=== PATIENT | male | born 1970 | race American Indian/Alaskan Native ===

== ENCOUNTER 2020-11-13 20:34 | Emergency (ER) | payer OTHER ==
--- NOTE | 2020-11-13 20:50 | Event Note ---
ED Screening Note Date of service: 11/13/20 Time: 20:48 ED Screening Note: 50-year-old -[place] male presents to the emergency room for acute fatigue shortness of breath. Patient states that he had a very busy day worked out this morning. Some cars washing cars fixing dinner just has been very active and then stopped and got some vitamins and her energy took them with some water and then not too long after he started to have shortness of breath and dizziness. It was noted that patient has unsteady gait tearful eyes with swelling of the upper lids a little respiratory distress not able to keep his eyes open much mild diaphoretic. It was noted that his triage heart rate was 1 18-1 21. Blood pressure is elevated. This initial assessment/diagnostic orders/clinical plan/treatment(s) is/are subject to change based on patients health status, clinical progression and re-assessment by fellow clinical providers in the ED. Further treatment and workup at subsequent clinical providers discretion. Patient/guardian urged not to elope from the ED as their condition may be serious if not clinically assessed and managed. Initial orders include:
[2020-11-13 21:20] LABS: Basophils % (Auto) 0.5 % (0.0-1.8); Eosinophils % (Auto) 0.4 % (0.0-4.3); Hematocrit 44.1 % (35.5-45.6); Hemoglobin 14.3 gm/dl (11.8-15.2); Lymphocytes # (Auto) 2.3 K/mm3 (1.2-5.4); Mean Corpuscular HGB Conc 33 % (32-34); Mean Corpuscular Volume 83 fl (84-94); Monocytes # (Auto) 0.4 K/mm3 (0.0-0.8); Monocytes % (Auto) 5.1 % (0.0-7.3); Platelet Count 190 K/mm3 (140-440); Red Blood Count 5.34 M/mm3 (3.65-5.03); Red Cell Distribution Width 12.9 % (13.2-15.2)
[2020-11-13 21:36] LABS: Alanine Aminotransferase 22 units/L (7-56); Albumin 4.8 g/dL (3.9-5); BUN/Creatinine Ratio 15; Blood Urea Nitrogen 18 mg/dL (9-20); Calcium 9.9 mg/dL (8.4-10.2); Hemolysis Index 7
[2020-11-13] MEDS ORDERED: SODIUM CHLORIDE 0.9% 1000 ML 1,000 ML IV ONE (21:40)
[2020-11-13] MEDS ORDERED: LORazepam 2 MG/ML VIAL IV ONE (21:40)
[2020-11-13] MEDS ORDERED: POTASSIUM CHLORIDE ER 20 MEQ TAB PO ONE (21:45)
--- NOTE | 2020-11-13 21:47 | XRay Report ---
XR chest routine 2V INDICATION / CLINICAL INFORMATION: sob. COMPARISON: None available. FINDINGS: SUPPORT DEVICES: None. HEART /PULMONARY VASCULATURE: No significant abnormality. LUNGS / PLEURA: No significant pulmonary or pleural abnormality. No pneumothorax. ADDITIONAL FINDINGS: No significant additional findings. IMPRESSION: 1. No acute findings. Signer Name: Bradley Madrigal MD Signed: 11/13/2020 9:43 PM Workstation Name: [id number]
--- NOTE | 2020-11-13 21:58 | Emergency Department Report ---
ED Shortness of Breath HPI - General Chief Complaint: Dyspnea/Respdistress Stated Complaint: CHEST PAIN Time Seen by Provider: 11/13/20 21:30 Source: patient Mode of arrival: Ambulatory Limitations: No Limitations - History of Present Illness Initial Comments: 50-year-old male, no past medical history, presents to ED with palpitations and shortness of breath. Patient states he took a male enhancement pill that he got from a vitamin shop called "Ejaculoid." Patient states he has taken this product before however, it has been sometime ago. Patient states when he used it before he only took 1 pill. Tonight, he decided to take 2 pills. After taki ng the pills, patient states his heart was racing so fast that he felt like he could not catch his breath. Patient denies any chest pain. MD Complaint: shortness of breath -: This evening Severity: moderate Consistency: constant Improves With: nothing Worsens With: nothing Treatments Prior to Arrival: none - Related Data Allergies Allergy/AdvReac Type Severity Reaction Status Date / Time No Known Allergies Allergy Verified 11/13/20 20:43 ED Review of Systems ROS: Stated complaint: CHEST PAIN Other details as noted in HPI Comment: All other systems reviewed and negative Constitutional: diaphoresis. denies: chills, fever Respiratory: shortness of breath. denies: cough Cardiovascular: palpitations. denies: chest pain Gastrointestinal: denies: nausea, vomiting ED Past Medical Hx - Past Medical History Previous Medical History?: No - Surgical History Past Surgical History?: No - Social History Smoking Status: Never Smoker Substance Use Type: Marijuana ED Physical Exam - General Limitations: No Limitations General appearance: alert, in no apparent distress - Head Head exam: Present: atraumatic, normocephalic - Eye Eye exam: Present: normal appearance, EOMI - ENT ENT exam: Present: mucous membranes moist - Neck Neck exam: Present: normal inspection - Respiratory Respiratory exam: Present: normal lung sounds bilaterally. Absent: respiratory distress - Cardiovascular Cardiovascular Exam: Present: normal rhythm, tachycardia - GI/Abdominal GI/Abdominal exam: Present: soft. Absent: distended, tenderness - Extremities Exam Extremities exam: Present: normal inspection - Neurological Exam Neurological exam: Present: alert, oriented X3 - Psychiatric Psychiatric exam: Present: normal affect, normal mood - Skin Skin exam: Present: warm, dry, intact, normal color ED Course Vital Signs 11/13/20 11/13/20 11/13/20 20:41 21:57 22:30 Temperature 97.5 F L Pulse Rate 118 H 78 Respiratory 18 18 16 Rate Blood Pressure 182/92 127/72 O2 Sat by Pulse 100 98 Oximetry 11/13/20 11/14/20 11/14/20 23:30 00:15 00:30 Temperature Pulse Rate 70 86 59 L Respiratory 16 16 16 Rate Blood Pressure 134/76 130/76 133/76 O2 Sat by Pulse 100 98 100 Oximetry 11/14/20 00:45 Temperature Pulse Rate 59 L Respiratory 16 Rate Blood Pressure 130/76 O2 Sat by Pulse 100 Oximetry ED Medical Decision Making - Lab Data Result diagrams: 11/13/20 20:52 11/13/20 20:52 - EKG Data -: EKG Interpreted by Me EKG shows normal: sinus rhythm, axis, intervals, QRS complexes Rate: tachycardia (rate 122) - EKG Data Interpretation: nonspecific ST-T wave leigha - Radiology Data Radiology results: report reviewed, image reviewed - Medical Decision Making 50-year-old male presents to the ED with palpitations, anxiety, difficulty breathing, after taking an [id number] male enhancement pills. Patient was initially hypertensive and tachycardic. He was given IV fluids and Ativan. Patient is currently feeling much better at this time. Vital signs have normalized. EKG shows no ST changes, troponin is negative x2. Potassium resulted at 3.2 and was replaced orally. Patient advised to refrain from taking these supplements. He will be discharged at this time. Outpatient follow-up advised, return precautions given. - Differential Diagnosis Anxiety, drug reaction, intoxication Critical care attestation.: If time is entered above; I have spent that time in minutes in the direct care of this critically ill patient, excluding procedure time. ED Disposition Clinical Impression: Palpitations, Hypokalemia Disposition: -01 TO HOME OR SELFCARE Is pt being admited?: No Condition: Stable Instructions: Hypokalemia, Palpitations, [id number] Referrals: PRIMARY CARE, [Primary Care Provider] - 3-5 Days [facility] [Provider Group] - 3-5 Days Time of Disposition: 00:21
[2020-11-13 23:42] LABS: Amphetamine Screen,Urine PRESUMPTIVE NEGATIVE; Benzodiazepines Screen,Urine PRESUMPTIVE NEGATIVE; Cannabinoid Screen,Urine PRESUMPTIVE POSITIVE; Cocaine Screen,Urine PRESUMPTIVE NEGATIVE; Methadone Screen,Urine PRESUMPTIVE NEGATIVE; Opiate Screen,Urine PRESUMPTIVE NEGATIVE
[2020-11-14 00:22] VITALS: BP 130/76
== END 2020-11-14 01:00 | disposition home or self-care (01) ==
LOC: ED 20:34
DX: E87.6 Hypokalemia (principal); R00.2 Palpitations; F12.10 Cannabis abuse, uncomplicated
CPT/HCPCS: 36415; 71046; 80053; 80307; 82550; 84484; 85025; 93005; 96361; 96374; 99284; J2060; J7030; 80320; G0480